=== PATIENT | female | born 1990 | race Caucasian/White ===

== ENCOUNTER 2020-05-21 22:15 | Emergency (ER) | payer OTHER ==
[2020-05-21] MEDS ORDERED: Ondansetron PF 4 MG/2 ML Vial ONE (23:39)
[2020-05-22 00:39] LABS: #Basophils 0.1 thou/uL (0.0-0.2); #Eosinphils 0.1 thou/uL (0.0-0.7); #Lymphocytes 2.6 thou/uL (1.20-3.40); #Monocytes 0.6 thou/uL (0.11-0.59); #Neutrophils 7.6 thou/uL (1.40-6.50); %Basophils 0.8 % (0.0-1.0); %Lymphocytes 23.5 % (21.0-51.0); %Monocytes 5.4 % (0.0-10.0); %Neutrophils 69.2 % (42.0-75.0); Hemoglobin 12.1 g/dL (12.0-16.0); Mean Corpuscular HGB CONC 33.3 g/dL (32.0-36.0); Mean Corpuscular Hemoglobin 29.4 pg (27.0-31.0); Mean Corpuscular Volume 88.3 fL (78.0-98.0); Mean Platelet Volume 6.7 fL (7.4-10.4); Platelet Count 336 thou/uL (130-400); RBC Distribution Width 13.1 % (11.5-14.5); Red Blood Cell (RBC) Count 4.12 mill/uL (4.20-5.40); White Blood Cell (WBC) Count 10.9 thou/uL (4.8-10.8)
[2020-05-22 00:45] LABS: ALT (SGPT) 12 U/L (8-55); AST (SGOT) 13 U/L (5-34); Albumin 3.7 g/dL (3.5-5.0); Alkaline Phosphatase 92 U/L (40-110); Anion Gap 16 mmol/L (10-20); BUN (Urea Nitrogen) 7 mg/dL (7.0-18.7); Bilirubin, Total 0.3 mg/dL (0.2-1.2); Calc. Creatinine Clearance 0 mL/min (70-130); Calcium 8.4 mg/dL (7.8-10.44); Carbon Dioxide 21 mmol/L (22-29); Chloride 103 mmol/L (98-107); Globulin 3.5 g/dL (2.4-3.5); Glucose 97 mg/dL (70-105); Potassium 3.3 mmol/L (3.5-5.1); Protein, Total 7.2 g/dL (6.0-8.3); Sodium 137 mmol/L (136-145)
[2020-05-22] MEDS ORDERED: Acetaminophen 500 MG TAB ONE (00:48)
[2020-05-22 00:51] LABS: D-Dimer Test 1.25 *mcg/mL (0.27-0.43)
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
== END 2020-05-22 03:01 | disposition home or self-care (01) ==
LOC: ERS 22:15
DX: O9A.212 Injury, poisoning and certain other consequences of external causes complicating pregnancy, second trimester (principal); S06.0X9A Concussion with loss of consciousness of unspecified duration, initial encounter; O99.891 Other specified diseases and conditions complicating pregnancy; R11.2 Nausea with vomiting, unspecified; R10.814 Left lower quadrant abdominal tenderness; R10.813 Right lower quadrant abdominal tenderness; M54.2 Cervicalgia; R51.9 Headache, unspecified; Z3A.24 24 weeks gestation of pregnancy; V49.40XA Driver injured in collision with unspecified motor vehicles in traffic accident, initial encounter
CPT/HCPCS: 70450; 76805; 80053; 85025; 85379; 85384; 93005; 96374; J2405

== ENCOUNTER 2024-02-24 03:31 | Inpatient (IN) | payer BC ==
[2024-02-24] MEDS ORDERED: Piperacillin/Tazobactam 3.375 GM VIAL ONE ×2 (06:47→18:57)
[2024-02-24] MEDS ORDERED: Sodium Chloride 0.9% 100 ML ONE ×2 (06:47→18:57)
[2024-02-24] MEDS ORDERED: Acetaminophen 325 MG TAB PO PRN (06:50)
[2024-02-24] MEDS ORDERED: Morphine 2 MG/ML VIAL SLOW IVP PRN (06:50)
[2024-02-24] MEDS ORDERED: Dextrose 5% in Water 1,000 ML IV PRN (07:01)
[2024-02-24] MEDS ORDERED: Glucagon 1 MG/ML KIT IM PRN (07:01)
[2024-02-24] MEDS ORDERED: Dextrose 50% Abboject 50 ML SYRINGE SLOW IVP PRN (07:01)
[2024-02-24] MEDS ORDERED: Indocyanine Green 25 MG/10 ML VIAL IVP SCH (08:00)
[2024-02-24 09:35] VITALS: BMI 30.4
[2024-02-24] MEDS: TETANUS, DIPHTHERIA TOX,ADULT (TDVAX) 0.5 ML VIAL IM ONE (10:01)
[2024-02-24] MEDS: Sodium Chloride 0.9% 1,000 ML IV SCH (10:11)
[2024-02-24] MEDS: Piperacillin/Tazobactam 3.375 GM in Sodium Chloride 0.9% 100 ML IVPB SCH (10:11)
[2024-02-24] MEDS: Famotidine/PF 20 mg/2ml Vial SLOW IVP SCH (10:11)
[2024-02-24] MEDS ORDERED: Indocyanine Green 25 MG/10 ML VIAL ONE ×2 (16:03→16:10)
[2024-02-24] MEDS ORDERED: EPINEPHrine 1 MG/ML VIAL ONE (16:03)
[2024-02-24] MEDS ORDERED: Bupivacaine 0.25% HCL 30 ML VIAL ONE (16:03)
[2024-02-24] MEDS ORDERED: Lidocaine 1% PF 5 ML VIAL ONE (16:13)
[2024-02-24] MEDS ORDERED: PROPOFOL 20 ML ONE (16:13)
[2024-02-24] MEDS ORDERED: Rocuronium Bromide 10 MG/ML (10ML VIAL) ONE (16:13)
[2024-02-24] MEDS ORDERED: fentaNYL PF 100 MCG/2 ML SYRINGE ONE ×2 (16:13→17:53)
[2024-02-24] MEDS: Ketorolac Tromethamine 30 MG (1 mL) VIAL IVP SCH (16:37)
[2024-02-24] MEDS ORDERED: Ondansetron PF 4 MG/2 ML Vial ONE (16:55)
[2024-02-24] MEDS ORDERED: Ketorolac Tromethamine 30 MG (1 mL) VIAL ONE (16:55)
[2024-02-24] MEDS ORDERED: Dexamethasone 20 MG/5 ML VIAL ONE (16:55)
[2024-02-24] MEDS ORDERED: SUGAMMADEX SODIUM 200 MG/2 ML VIAL ONE (18:13)
[2024-02-24] MEDS ORDERED: Morphine Sulfate 2 MG/ML SYRINGE SLOW IVP PRN (18:38)
[2024-02-24] MEDS ORDERED: HYDROmorphone 2 MG/ML VIAL SLOW IVP PRN (18:38)
[2024-02-24] MEDS ORDERED: Ondansetron HCl/PF 4 MG/2 ML Vial IVP PRN (18:38)
[2024-02-24] MEDS ORDERED: PACU-Morphine 4MG/ML VIAL SLOW IVP PRN (18:38)
[2024-02-24] MEDS ORDERED: Promethazine HCl 25 MG/ML VIAL IM PRN (18:38)
[2024-02-24] MEDS ORDERED: fentaNYL 50 mcg/mL 1 mL Vial ONE ×2 (18:46→19:05)
[2024-02-24] MEDS ORDERED: Morphine 4 MG/ML VIAL ONE (19:17)
[2024-02-24] MEDS: HYDROcodone/Acetaminophen 5/325 mg Tablet PO PRN (21:41)
[2024-02-25] MEDS: traMADol HCl 50 MG TAB PO PRN (09:22)
[2024-02-25 11:41] VITALS: BP 109/72; TEMP 98.4
== END 2024-02-25 14:20 | disposition home or self-care (01) | DRG 419 ==
LOC: ERS 03:31 → SURG A 08:53
PROVIDERS: ADMIT Surgery; ATTEND Surgery
PROC: 0FT44ZZ Resection of Gallbladder, Percutaneous Endoscopic Approach (ICD-10-PCS; principal; 2024-02-24)
DX: K80.00 Calculus of gallbladder with acute cholecystitis without obstruction (principal); K42.9 Umbilical hernia without obstruction or gangrene; K21.9 Gastro-esophageal reflux disease without esophagitis; Z98.890 Other specified postprocedural states; Z88.5 Allergy status to narcotic agent
CPT/HCPCS: 76705; 88304; 96365; A6258; C1713; J0171; J0665; J1100; J1885; J2272; J2405; J2543; J2704; J3010; J3490; J7030